=== PATIENT | male | born 1965 | race Asian ===

== ENCOUNTER 2020-05-01 00:23 | Emergency (ER) | payer OTHER ==
[~2020-05-01] VITALS: Ht 172.7 cm; Wt 90.4 kg
[2020-05-01 01:20] LABS: PLATELET COUNT 200 K/uL (142-355)
[2020-05-01 01:25] LABS: POTASSIUM 3.5 mmol/L (3.6-5.2)
[2020-05-01 01:58] VITALS: BP 119/74; TEMP 99
[2020-05-01] MEDS ORDERED: [UNRECOGNIZED DRUG - OTHER] PO (02:43)
[2020-05-01] MEDS ORDERED: ARTIFICIAL TEAR1.4 % OPTH (02:46)
[2020-05-01] MEDS ORDERED: GABA100C2 PO (02:49)
[2020-05-01] MEDS ORDERED: HYDR5TAB9 PO (02:51)
[2020-05-01] MEDS ORDERED: LACTULOSE10 GM/15 M PO (02:53)
[2020-05-01] MEDS ORDERED: XALATAN0.005 % OPTH (02:56)
[2020-05-01] MEDS ORDERED: KEPPRA1000 MG PO (02:57)
[2020-05-01] MEDS ORDERED: PROVERA10 MG PO (03:00)
[2020-05-01] MEDS ORDERED: MOBIC15 MG PO (03:01)
[2020-05-01] MEDS ORDERED: OMEPRAZOLE DR20 MG PO (03:02)
[2020-05-01] MEDS ORDERED: PAROXETINE HYDR30 MG PO (03:04)
[2020-05-01] MEDS ORDERED: POTASSIUM CL ER PO (03:07)
[2020-05-01] MEDS ORDERED: TORS20TA2 PO (03:08)
[2020-05-01] MEDS ORDERED: VIMPAT150 MG PO (03:10)
[2020-05-01] MEDS ORDERED: UTI-STAT PO (03:10)
[2020-05-01] MEDS ORDERED: ASCO500T18 PO (03:11)
== END 2020-05-01 01:59 | disposition other institution (70) ==
LOC: ED 00:23
DX: Z04.6 Encounter for general psychiatric examination, requested by authority (principal); Z11.59 Encounter for screening for other viral diseases; I10 Essential (primary) hypertension
CPT/HCPCS: 36415; 80053; 85027; 87635; 93005; 99283; G2023; U0003